=== PATIENT | female | born 1985 | race Caucasian/White ===

== ENCOUNTER 2021-05-11 13:59 | Emergency (ER) | payer OTHER, SELFPAY ==
[2021-05-11 14:49] VITALS: BP 169/95; PULSE 78; RESP 16; TEMP 37.2; O2SAT 100
--- NOTE | 2021-05-11 15:14 | ED.SKABFB ---
HPI - Skin/Abscess/Foreign Bdy General Chief complaint: Skin/Abscess/Foreign Body Stated complaint: Painful Bump under right Arm Time Seen by Provider: 05/11/21 15:14 Source: patient Mode of arrival: ambulatory Limitations: no limitations History of Present Illness HPI narrative: Kam Casey is a 35 yo female with no PMH who comes with a cellulitis in her right arm that is mildly raised and painful to touch. Is been there for for 2 weeks and she has been treating it with warm warm washcloths and states this is smaller than it was. Had a similar lesion years ago Related Data Allergies Allergy/AdvReac Type Severity Reaction Status Date / Time No Known Allergies Allergy Verified 05/11/21 14:34 Review of Systems Review of Systems: CONSTITUTIONAL: Denies fever, chills, sweats. EYES: Denies visual changes, redness, discharge. ENT: Denies rhinorrhea, congestion, sore throat, otalgia. CARDIOVASCULAR: Denies chest pain, palpitations, edema. RESPIRATORY: Denies dyspnea, wheezing, cough GASTROINTESTINAL: Denies abdominal pain, nausea, vomiting, diarrhea. GENITOURINARY: Denies dysuria, hematuria, abnormal discharge SKIN: Denies rash or itching. Has lesion right axilla, retention NEUROLOGIC: Denies numbness, or focal weakness. PSYCHIATRIC: Denies anxiety or depression. PMFSH Past Medical History Medical History No acute medical problems Family History Family History Father Hypertension Social History Social History (Updated 05/11/21 @ 15:25 by Lauren Aragon CNP) Smoking packs per day: 0.5 Smoking cigarettes per day: 10.0 Smoking status: Current every day smoker Alcohol intake: current Alcohol use details: Uses alcohol more than socially Comments At time of signature, I agree with nursing past medical, surgical, social and family history. There is no relevant family history pertinent to the presenting complaint. Patient's blood pressure elevated; is having pain from area under her arm and has doctors appointment on the Exam Narrative: GENERAL: This is a well-nourished, well-developed patient, in mild distress. HEAD: normocephalic, atraumatic. EYES: Sclera clear/white. Vision is grossly intact. EARS: External ears normal, . Hearing grossly intact. NOSE: External nose normal without nasal discharge, nares without redness, no rhinorrhea. THROAT: Mucous membranes moist, NECK: Neck supple, CARDIOVASCULAR: Regular rate and rhythm without murmurs, gallops, or rubs. RESPIRATORY: Clear to auscultation. Breath sounds equal bilaterally. No wheezes, rales, or rhonchi. GASTROINTESTINAL: Abdomen soft, non-tender, SKIN: warm, intact with tender lesion about 4 x 3 under right arm in the axilla NEURO: awake, alert, and oriented to person, place and time. There were no obvious focal neurologic abnormalities. Steady gait EXTREMITIES: Normal range of motion. BACK: Nontender without deformity Course Course Emergency Course: Patient comes here with painful lesion under right arm Number 18-gauge needle put into area did not drain anything with blood Started on Bactrim and Keflex Vital Signs Vital signs: Vital Signs Temperature 99.0 F 05/11/21 14:49 Pulse Rate 78 05/11/21 14:49 Respiratory Rate 16 05/11/21 14:49 Blood Pressure 169/95 H 05/11/21 14:49 Pulse Oximetry 100 05/11/21 14:49 Temperature 99.0 F 05/11/21 14:49 Pulse Rate 78 05/11/21 14:49 Respiratory Rate 16 05/11/21 14:49 Blood Pressure 169/95 H 05/11/21 14:49 Pulse Oximetry 100 05/11/21 14:49 Procedures Abscess I/D upper extremity: Date of Incision: 05/11/21 Time of Incision: 15:22 Side (if applicable): right Technique: needle aspiration Amount of fluid expressed (mL): 1 Packing used?: none I&D Results: Blood MDM - Skin/Abscess/Foreign Bdy Different
== END 2021-05-11 15:36 | disposition home or self-care (01) ==
PROVIDERS: Emergency Provider Nurse Practitioner
DX: L03.111 Cellulitis of right axilla (principal); F17.210 Nicotine dependence, cigarettes, uncomplicated
CPT/HCPCS: 10160; 99213; G0463

== ENCOUNTER 2021-11-29 10:07 | Emergency (ER) | payer OTHER, SELFPAY ==
[2021-11-29 10:10] VITALS: BP 133/91; PULSE 92; RESP 16; TEMP 36.7; O2SAT 100
--- NOTE | 2021-11-29 10:19 | ED.EYEPROB ---
HPI - Eye Problem General Chief complaint: Eye Problems Stated complaint: right eye Time Seen by Provider: 11/29/21 10:13 Source: patient and RN notes reviewed Mode of arrival: ambulatory Limitations: no limitations History of Present Illness HPI Narrative: 35-year-old female presents with concern for swollen right lower eyelid, redness, tenderness to the eyelid. Reports symptoms started yesterday. She reports slightly blurry vision. She reports she has been crying a lot lately. What MD chief complaint: eye redness Related Data Allergies Allergy/AdvReac Type Severity Reaction Status Date / Time No Known Allergies Allergy Verified 05/11/21 14:34 Review of Systems Review of Systems: CONSTITUTIONAL: Denies malaise, chills, sweats, or fever. EYES: Reports slightly blurred vision in the right eye. Reports right eye redness, tenderness, discharge, lower eyelid swelling. ENT: Denies rhinorrhea, congestion, sinus pain, otalgia or sore throat. SKIN: Denies rash or itching. NEUROLOGIC: Denies numbness, weakness, or headache. PSYCHIATRIC: Denies anxiety or depression. All systems reviewed & are unremarkable except as noted in HPI and below PMFSH Past Medical History Medical History No acute medical problems Family History Family History Father Hypertension Social History Social History (Updated 05/11/21 @ 15:25 by Lauren Aragon CNP) Smoking packs per day: 0.5 Smoking cigarettes per day: 10.0 Smoking status: Current every day smoker Alcohol intake: current Alcohol use details: Uses alcohol more than socially Comments At time of signature, agree with nursing past medical, surgical, social and family history. There is no relevant family history pertinent to the presenting complaint Exam Narrative: GENERAL: Well-appearing, well-nourished, and in no acute distress. HEAD: Normocephalic, atraumatic. EYES: PERRLA and EOMI. No nystagmus. Right conjunctivae injected with lower eyelid edema, erythema and tenderness. Upper eyelid unremarkable, no periorbital edema noted ENT: Nares clear, turbinates pink, no rhinorrhea or epistaxis. Mucous membranes moist. TM pearly cantu with sharp light reflex bilaterally; no tragal tenderness. NECK: Supple. CHEST: No respiratory distress. Speaks in full sentences. HEART: Regular rate and rhythm. SKIN: Warm, dry, no visible rash. NEURO: Alert and oriented x3. PSYCH: Normal mood and affect Course Course Emergency Course: Patient is aware of diagnosis, understands and agrees to treatment plan. Anticipatory guidance given. Patient agrees to follow-up as directed and is aware of reasons to seek care at the emergency department. Portions of this record may have been created with voice recognition software Level of Care: Express Care Visit Vital Signs Vital signs: Vital Signs Temperature 98.1 F 11/29/21 10:10 Pulse Rate 92 11/29/21 10:10 Respiratory Rate 16 11/29/21 10:10 Blood Pressure 133/91 H 11/29/21 10:10 Pulse Oximetry 100 11/29/21 10:10 Temperature 98.1 F 11/29/21 10:10 Pulse Rate 92 11/29/21 10:10 Respiratory Rate 16 11/29/21 10:10 Blood Pressure 133/91 H 11/29/21 10:10 Pulse Oximetry 100 11/29/21 10:10 Reviewed. MDM - Eye Problem MDM Narrative Medical decision making narrative: Consideration of the following conditions may be warranted for the presenting problem, they are not final diagnoses: Bacterial conjunctivitis, allergic conjunctivitis, viral conjunctivitis, foreign body, blepharitis, chalazion, hordeolum, corneal abrasion, preseptal cellulitis, orbital cellulitis. No evidence of proptosis, ophthalmoplegia, vision loss, pain with eye movement. Exam findings show no acute concerns or changes; patient is non-toxic appearing and is in no distress. Patient is appropriate for outpatient treatment and follow-up. [place]
== END 2021-11-29 10:27 | disposition home or self-care (01) ==
PROVIDERS: Emergency Provider Nurse Practitioner
DX: H10.9 Unspecified conjunctivitis (principal); F17.210 Nicotine dependence, cigarettes, uncomplicated
CPT/HCPCS: 99213; G0463